=== PATIENT | male | born 1955 | race Caucasian/White ===

== ENCOUNTER 2019-04-09 12:08 | Outpatient (CLI) | payer BC, SELFPAY ==
[2019-04-09] VITALS (8 sets, daily range): BP systolic 122–148; BP diastolic 64–85; PULSE 67–83; RESP 16–18; TEMP 37; O2SAT 94–98
--- NOTE | 2019-04-09 12:11 | DI.RAD.S_ITS ---
PROCEDURE: PAIN L/S FACET INJ/BLK 1ST [place] COMPARISON: [facility] [place], CR, XR LUMBAR SPINE 2 OR 3 VIEWS, 02/20/2019, 15:20. [facility] [place], MR, MR LUMBAR SPINE WITH/WITHOUT CONTRAST, 02/27/2019, 10:44. INDICATIONS: SPONDYLOSIS FINDINGS: 6 intraoperative fluoroscopy images demonstrate injection of L4-L5 facet joint bilaterally. IMPRESSION: Fluoroscopy for pain management. Dictated by: Jai Rainey M.D. on 04/09/2019 at 17:04 Approved by: Jai Rainey M.D. on 04/09/2019 at 17:05
[2019-04-09] MEDS: fentaNYL 100 MCG/2 ML INJ 50 MCG IV (13:25)
[2019-04-09] MEDS: MIDAZOLAM 5 MG/5 ML VIAL IV (13:25)
[2019-04-09] MEDS: IOPAMIDOL 15 ML VIAL 3 ML INJ (13:28)
[2019-04-09] MEDS: LIDOCAINE 1% 20 ML INJ 10 ML INJ (13:29)
[2019-04-09] MEDS: BUPIVACAINE 0.5% (PF) VIAL 2 ML INJ (13:29)
[2019-04-09] MEDS: BETAMETHASONE 30 MG/5 ML MDV 12 MG INJ (13:29)
--- NOTE | 2019-04-09 13:34 | PC.NURSE ---
pt tolerated procedure well. Able to get off the table with standby assist. Transferred pt via wheelchair to pre procedure room for continued monitoring with Claire GOLDEN.
--- NOTE | 2019-04-09 13:36 | P.PCN_ITS ---
Procedures Date/Time Date of procedure: 04/09/19 Time of procedure: 13:35 General Procedure description: PREOP DIAGNOSIS 1. FACET ARTHROPATHY 2. AXIAL LBP 3. MULTILEVEL DDD POST OP DIAGNOSIS 1. FACET ARTHROPATHY 2. AXIAL LBP 3. MULTILEVEL DDD PROCEDURES 1. FLUORSCOPICALLY GUIDED CONTRAST CONTROLLED FACET JOINT INJECTIONS BILATERAL L4/5 PHYSICIAN: Akbar Victor, DO INDICATIONS Tony is referred by Dr. Miranda for treatment of Axial LBP FINDINGS Multilevel Facet Arthropathy with Clinically significant axial LBP DESCRIPTION OF PROCEDURE Fluoroscopically guided, contrast-controlled bilateral L4/5 facet joint injections. Following denial of allergy and review of potential side effects and complications, including, but not necessarily limited to, infection, allergic reaction, local tissue breakdown, stroke, temporary or permanent nerve injury, paralysis, and possible , the patient indicated that the patient understood and agreed to proceed. An informed consent document was signed by the patient, witnessed by a nurse, and placed in the patient's chart. Additionally, other treatment options including medications, modalities, and physical therapy were reviewed with the patient. After review of previous anaesthesic history and IV conscious sedation the patient was deemed safe to proceed with todays procedure with IV conscious sedation as ASA class II designation. Safety time-out was performed to confirm patient ID, procedure to be performed and site of procedure. IV sedation was accomplished with a combination of 2mg of Versed and 50mcg of Fentanyl was administered by the RN after DO order, titrated to patient comfort during the course of the procedure while the patient remained responsive to all verbal commands In the prone position, following sterile prep and drape of the lumbar region, th e posterior aspect of the L4/5 facet joints were identified fluoroscopically. The skin was anesthetized via a 25-gauge 1.5-inch needle with 1% lidocaine solution into the corresponding facet joints. At this point, a 22-gauge 3.5- inch spinal needle was atraumatically introduced and advanced under fluoroscopic guidance into the corresponding facet joints. Following negative aspiration, injections of approximately 0.2-cc of Isovue 200 confirmed interarticular placement without vascular uptake. The identical procedure was then performed at the L4/5 facet joint on the left. Radiological data, including multiple fluoroscopic views of the lumbosacral spine, reveal a spinal needle at the L4/5 facet joints bilaterally. Subsequent views show flow of contrast material both superiorly and inferiorly within the joint space without vascular or intrathecal uptake. At this point, a total of 0.5 cc including a mixture of 0.25cc Marcaine and 0.25cc betamethasone was injected without complication into each of the corresponding facet joints. The patient tolerated the procedure well without signs or symptoms of complications prior to transfer to the recovery area continued monitoring with out incident. The patient was then transferred to the recovery area where they were observed for an appropriate period of time after the injection. The patient reported a VAS score of 7 prior to the procedure and a post- procedure VAS of 0. Total Fluoroscopy Time: 20.3 seconds Total Conscious Sedation Time: 24min POST OP INSTRUCTIONS The patient was provided a Pain Log to continue to record their response to the target-specific procedure prior to follow-up visit with their referring physician. Additionally, specific post-injection care instructions and a contact number to our office were provided if concerns arise regarding possible complications associated with the procedure are suspected. Akbar Victor, Complications: none
== END 2019-04-09 14:44 | disposition home or self-care (01) ==
LOC: RAD 12:09
PROVIDERS: PCP Family Medicine; Visit Provider Physical Medicine & Rehabilitation
DX: M47.816 Spondylosis without myelopathy or radiculopathy, lumbar region (principal); M54.5 Low back pain; M51.36 Other intervertebral disc degeneration, lumbar region
CPT/HCPCS: 64493; 99152; J0702; J2250; J3010

== ENCOUNTER 2023-05-31 10:02 | Inpatient (IN) | payer MEDICARE, OTHER, SELFPAY ==
[2023-05-23 13:58] VITALS: BMI 38.7
[2023-05-31] VITALS (13 sets, daily range): BP systolic 112–143; BP diastolic 70–86; PULSE 53–76; RESP 10–22; TEMP 35.8–36.4; O2SAT 89–98; BMI 38.7
[2023-05-31] MEDS: LACTATED RINGERS 1,000 ML 42 ML IV ×2 (10:46→17:05)
--- NOTE | 2023-05-31 11:20 | PM.PREOP ---
Pre-operative Note COVID-19 Criteria for continued procedure: Expected advancement of disease process, Possibility delay results in more complex future surgery or treatment, Increased loss of function, Continuing or worsening of significant or severe pain, Deterioration of the patient's condition or overall health and Delay expected to result in less-positive ultimate med/surg outcome Interval Note History & Physical reviewed/Exam performed by Physician: Yes Changes to H&P: No
[2023-05-31] MEDS: CEFAZOLIN VIAL 1 GM in SODIUM CHLORIDE 0.9% 100 ML IV (12:35)
[2023-05-31] MEDS: CEFAZOLIN 2 GM/100 ML PREMIX 100 ML IV ×2 (12:35→20:17)
--- NOTE | 2023-05-31 12:54 | SUR.OPER ---
Prone on spine table, head in foam head support, padded chest and pelvic supports, gel pad at knees, lower legs supported by pillows; nipples, genitalia and toes free of pressure, arms secured on foam padded arm boards at <90 degrees abduction. Tape over blanket at thigh secured to table.
[2023-05-31] MEDS: BUPIVACAINE LIPOSOME 266 MG/20 ML VIAL INJ (13:21)
[2023-05-31] MEDS: BUPIVACAINE 0.25% (PF) 30 ML, EPINEPHrine 0.15 MG INJ (13:22)
--- NOTE | 2023-05-31 16:06 | DI.RAD.S_ITS ---
PROCEDURE: XR LUMBAR SPINE 2-3V INDICATIONS: L3-4, L4-5 TLIF ROBOT TECHNIQUE: 2 intraoperative fluoroscopic spot films COMPARISON: None. FINDINGS: Low resolution intraoperative fluoroscopic spot films shows discectomy and fusion at L3-4 and L4-5 as level films with posterior zaida and screw instrumentation in good position IMPRESSION: Fluoroscopic guidance Approved by: Memo Hess M.D. on 05/31/2023 at 16:00
--- NOTE | 2023-05-31 16:11 | P.OP_ITS ---
Operative Date/Time/Diagnoses Date of procedure: 05/31/23 Time of procedure: 12:00 Pre-op diagnosis: 1. L3-4, L4-5 spinal stenosis with neurogenic claudication 2. Epidural lipomatosis 3. Lumbar spondylosis with foramen stenosis Post-op diagnosis: same Procedure & Clinicians Procedure: 1. L3-4, L4-5 Postero-lateral and posterior interbody fusion 2. L3-4, L4-5 interbody cage placement. 3. L3-4, L4-5 decompressive laminectomy with bilateral facetecomies 4. L3-4, L4-5 Posterior segmental instrumentation 5. [place] of bone marrow from iliac crest 6. Utilization of microsurgical technique and operating microscope 7. Utilization of robotic assisted navigation Same procedure as scheduled: Yes Indications: Patient has been having chronic back pain and worsening lumbar radiculopathy and symptoms of neurogenic claudication. Patient failed multiple conservative management with worsening pain weakness and numbness in his lower extremity. Patient has been having difficulty performing activity of daily living. After discussing risks benefits of treatment options, patient elected proceed with surgery. Surgeon: Kevon Adrian Automated Cutting Machine Operator: Bryanna Scott Click Yes if Unassisted: No Anesthesia Type: General Operative Notes Closure Type: primary Specimen(s): none sent Prosthetic devices, grafts, tissues, transplants, or devices: Globus CREO MIS screws, Rise cages Applied: catheter Estimated Blood Loss (mL): 100 Blood products transfused: none Procedure in detail: Patient was seen in the preoperative area. Risks and benefits of the surgery was discussed with the patient. Informed consent was obtained from the patient and placed in the chart. Surgical site was marked. Patient was taken to the operative room. General anesthesia was administered. Prophylactic antibiotic was given to the patient less than 30 min before the incision was made. Patient was placed into a prone position on the Gaurav table. Patient's back was then prepped and draped in the sterile fashion. Time-out was performed at this time. After patient was prepped and draped, patient's PSIS was palpated and marked bilaterally. Small 1 cm incision was made over the PSIS for placement of the reference probes. Two trocar was placed into the PSIS 1 on each side. The reference probe was attached to the trocar of the reference apparatus. At this time the C-arm imaging was used to confirm AP and lateral of L3, L4-L5 vertebrae and merged the C-arm imaging using the [employer] robotic navigation system with the CT of the lumbar spine. After successful merging was completed and confirmed, skin marker was used to booker out the skin incision using the [employer] robotic arm. Bilateral incision was made at this time. Pre templated trajectory was used and guided using the [place] navigation system for bilateral L3 L4, L5 pedicle screw placement. This was done by using the robotic arm to guide the high-speed bur to make a cortical entry point. Next a drill was placed also using the robotic arm and guided u sing the navigation system drilling partially through bilateral L3, L4, L5 pedicles. Next L3, L4, L5 pedicle screws it was pre templated and measured was placed onto the power concrete mixing truck driver and inserted into the pedicles bilaterally. After all 6 screws were placed C-arm imaging was taken of both AP and lateral to confirm the placement. Excellent placement of the screws were confirmed and a matched precisely with the pre planned screw placement using the navigation system. MARs retractor was inserted using [employer] guidence. Globus MARS retractors was placed inside the incision and docked onto the L3, L4 lamina. Using microsurgical technique and operating microscope, a L3, L4 laminectomy and L3-4, L4-5 facetectomy was performed using a [place] rongeur. The laminectomy and facetectomy was performed in order to decompress patient's cauda equina as well as the nerve roots exiting at the L3-4, L4-5 level. Patient was found have severe central, lateral recess and neural foramen stenosis which was fully decompressed after the laminectomy facetectomy. The laminectomy and facetectomy was performed in order to decompress patient's cauda equina as well as the nerve roots exiting at the L3-4, L4-5 level. More than 75% of the facets were removed during the process of decompression rendering L3-4, L4-5 level grossly unstable and required a fusion procedure at the same time. The disc space at L3-4, L4-5 was identified, and a total diskectomy was performed at L3-4, L4-5 level. The endplates were decorticated using a rasp and shaver. The total diskectomy and decortication was performed at L3-4, L4-5 level in order to to accomplish a L3- 4, L4-5 fusion. The local bone from the laminectomy and facetectomy was saved for local bone grafting. After the total diskectomy and decortication was completed, Trifecta bone graft material was combined with local bone that was harvested earlier. Patient was also found have significant amount of epidural lipomatosis in the epidural space. This further contributed to patient's severe spinal stenosis. The lipomas were carefully resected from the epidural space to further decompress the spinal stenosis. At this time, a separate skin is incision was made over the iliac crest. A Jamshidi needle was inserted into the iliac crest through a separate skin incision. 5 cc of bone marrow aspiration was obtained through the separate skin incision using a Jamshidi needle from the iliac crest. The bone marrow aspiration was combined with local bone and the Trifecta bone grafting material. The bone grafting material was placed into the L3-4, L4-5 interbody space along with expandable cages. One cage each was inserted into the L3-4 L4-5 interbody space along with bone graft material. The cage was expanded to its maximum he ight using the torque limiting screwdriver. The disc preparation as well as the cage insertion were also performed under navigation guidance. After the cage was placed, AP and lateral C-arm imaging w as taken to confirm placement of the cage and excellent position was confirmed. Globus MARS retractor was inserted and docked onto the L3-4, L4-5 posterolateral gutter on the right side. Using the power drill, posterior-lateral decortication was performed at L3-4, L4-5 level until bleeding cortical bone was identified. The remaining bone grafting material was placed into the L3-4, L4-5 posterior lateral gutter he order to accomplish posterolateral fusion at the L3- 4, L4-5 level. At this time the tulips were attached to the L3, L4-L5 pedicle screw shanks. After measuring the length of the rods, they were inserted into the tulips of the pedicle screws and locked in place using locking caps and torque limiting screwdriver bilaterally. Total 6 caps and 2 titanium rods was used in order to complete the posterior instrumentation construct. After all the hardware was placed, and confirmed with AP and lateral C-arm imaging, the wound was then irrigated with sterile normal saline and packed with Ray-Silke gauze for 3 min to accomplish hemostasis. After the gauze was removed the deep fascia was closed with #1 Vicryl suture. The subcutaneous layer was closed with 2-0 Vicryl. The skin was closed with skin argelia. Patient tolerated the procedure well. There were no complications. Neuro monitoring system was used to monitor patient's neurologic status throughout entire procedure. There was no disturbance of the neural monitoring signals throughout the case. The Operation could not have been safely performed without compromising the technical result or length of the procedure, without the assistance of a skilled surgical assistant certified. The surgical assistant certified was medically necessary for proper positioning, retraction and manipulation of instruments, proper exposure, surgical preparation, and manipulation of tissue. Complications: none Post-operative Condition: stable Disposition: PACU Plan for aftercare: Admit to inpatient hospital
[2023-05-31] MEDS: OXYCODONE IR 5 MG TABLET PO (16:50)
[2023-05-31] MEDS: hydrOXYzine pamoate 25 MG CAPSULE 50 MG PO (16:51)
[2023-05-31] MEDS: ACETAMINOPHEN 325 MG TABLET 650 MG PO (18:30)
[2023-05-31] MEDS: OXYCODONE IR 10 MG TABLET PO (18:30)
[2023-05-31] MEDS: LACTATED RINGERS 1,000 ML 125 ML IV (18:30)
[2023-05-31] MEDS: SENNOSIDES 8.6 MG TABLET 17.2 MG PO (20:18)
[2023-05-31] MEDS: ATORVASTATIN 20 MG TABLET 40 MG PO (20:18)
[2023-05-31] MEDS: DOCUSATE 100 MG CAPSULE PO (20:18)
[2023-06-01] MEDS: OXYCODONE IR 10 MG TABLET PO ×5 (01:14→21:44)
[2023-06-01] MEDS: LACTATED RINGERS 1,000 ML 125 ML IV (03:08)
[2023-06-01 03:36] VITALS: BP 146/71; PULSE 66; RESP 20; TEMP 36.4; O2SAT 96
[2023-06-01] MEDS: CEFAZOLIN 2 GM/100 ML PREMIX 100 ML IV (04:29)
[2023-06-01 05:19] LABS: Hematocrit 39.6 % (41-53); Hemoglobin 13.3 g/dL (13.5-17.5)
[2023-06-01 08:00] VITALS: BP 141/81; PULSE 80; RESP 18; TEMP 37.4; O2SAT 95
[2023-06-01] MEDS: hydrOXYzine pamoate 25 MG CAPSULE PO ×4 (08:29→21:44)
[2023-06-01] MEDS: DOCUSATE 100 MG CAPSULE PO ×2 (08:29→21:44)
[2023-06-01] MEDS: METOPROLOL ER 25 MG TABLET PO (08:29)
[2023-06-01] MEDS: AMLODIPINE 5 MG TABLET PO (08:29)
[2023-06-01 09:31] VITALS: O2SAT 92
[2023-06-01 12:00] VITALS: BP 133/75; PULSE 84; RESP 18; TEMP 37.3; O2SAT 93
[2023-06-01] MEDS: ACETAMINOPHEN 325 MG TABLET 650 MG PO (12:48)
--- NOTE | 2023-06-01 12:57 | PM.PN.1 ---
Subjective Subjective Date Patient Seen: 06/01/23 Time Patient Seen: 10:30 Interval history: Patient is resting comfortably in bed this morning. He states that he had a rough night with pain and ?dreams.? Denies fever and chills. States he is unsure that he had trouble breathing last night, unsure why he is wearing nasal cannula with O2 at 2 L. Denies chest pain, shortness of breath. Exam Vital Signs (past 8 hours): - 06/01/23 09:31 06/01/23 07:55 Pulse Oximetry 92 Oxygen Delivery Method Nasal Cannula Nasal Cannula Oxygen Flow Rate 2 Oxygen Delivery Method Nasal Cannula Oxygen Flow Rate 2 Narrative Exam Narrative: 67-year-old male. Awake, alert, and oriented. Intraoperative dressing clean, dry, and intact. Strength and sensation intact to bilateral lower extremities. Mild subjective tingling to bilateral feet. Bilateral calves soft, compressible, nontender with no palpable cords or masses. Objective Labs 06/01/23 04:40 Labs: Laboratory Results - last 24 hr 06/01/23 04:40 Hgb 13.3 L Hct 39.6 L PFSH Medical History (Updated 05/23/23 @ 14:44 by Kelsey Ramirez RN) CAD (coronary artery disease) Easy bruisability History of mechanical ventilation (2020) HLD (hyperlipidemia) HTN (hypertension) Ischemic cardiomyopathy Melanoma Suspected sleep apnea Surgical History (Updated 05/23/23 @ 14:19 by Kelsey Ramirez RN) History of cardiac cath History of placement of ear tubes (06/2021) History of surgical removal of ganglion cyst (~2015) Hx of heart artery stent (2017) Hx of nasal septoplasty Social History household members: none Smoking Status: Current every day smoker alcohol intake: current Assessment & Plan Assessment & Plan narrative: Patient is day 1 status post two-level TLIF. He is not been out of bed yet and still has urinary catheter, discontinued today. Has had intermittent high blood pressure, treated with amlodipine. Plan to work with physical therapy this morning and afternoon. Continue multimodal pain regimen as needed. Disposition pending physical therapy recommendations. Quality VTE Deep Vein Thrombosis/Pulmonary Embolism Present on Admission: No
--- NOTE | 2023-06-01 16:17 | PT.IIE ---
Current Diagnoses Spondylolisthesis, lumbar region (05/31/23) Spinal stenosis, lumbar region with neurogenic claudication (05/31/23) Postlaminectomy syndrome, not elsewhere classified (05/31/23) Surgery Performed Operation Date: 05/31/23 11:45 Actual Procedures p L3-4, L4-5 TLIF w. posterior instrumentation -Robot - Kevon Adrian MD Surgical History (Last Updated 05/23/23 @ 14:19 by Kelsey Ramirez, RN) History of cardiac cath History of placement of ear tubes (06/2021) History of surgical removal of ganglion cyst (~2015) Hx of heart artery stent (2017) Hx of nasal septoplasty Medical History (Last Updated 05/23/23 @ 14:44 by Kelsey Ramirez, RN) CAD (coronary artery disease) Easy bruisability History of mechanical ventilation (2020) HLD (hyperlipidemia) HTN (hypertension) Ischemic cardiomyopathy Melanoma Suspected sleep apnea Physical Therapy Inpatient Evaluation/Re-Eval M1 PT/OT-IP Prior Functional Status Start: 06/01/23 17:30 Freq: NEEDED Status: Active Protocol: Document 06/01/23 14:35 AB (Rec: 06/01/23 17:45 AB [id number]) Medical Review Prior Functional Status Medical History Reviewed Yes Mobility and Gait pt stated that he is independent with all mobilities and ambulation without AD Social History Household Members none Living Arrangements House Number of Floors (Floors) One Floor Number of Stairs To Enter/Railing? 2 steps without rails to enter Home Environment Standard Height Toilet,Tub/ Shower Home Equipment Front Wheel Walker M2 PT-IP Current Condition Start: 06/01/23 17:30 Freq: NEEDED Status: Active Protocol: Document 06/01/23 14:35 AB (Rec: 06/01/23 17:45 AB [email or web address]) Physical Therapy Current Condition Current Condition Evaluation Date 06/01/23 Treatment Diagnosis s/p L3-4, L4-5 TLIF; difficulty in walking Onset Date 05/31/23 M3 PT-IP Subjective Start: 06/01/23 17:30 Freq: NEEDED Status: Active Protocol: Document 06/01/23 14:35 AB (Rec: 06/01/23 17:45 AB [email or web address]) Subjective Physical Therapy Visit Type Type Initial Evaluation Visit Start Time 14:35 Visit Stop Time 15:36 Total Visit Minutes 61 Number of LIQUOR GRINDING MILL OPERATOR Visits 0 Physical Therapy Visit Comments Patient Comments agreeable to do PT Therapy Pain Assessment Pain When Pain Assessed During Mobility Pain Present Pain Present Pain Reported Location LOWER BACK Intensity 8 Scale Used Numeric (0 - 10) Pain Management Techniques Distraction,Modification of Treatment,Re-positioning, Timing of Activity with Medications M4 PT-IP Mobility and Gait Start: 06/01/23 17:30 Freq: NEEDED Status: Active Protocol: Document 06/01/23 14:35 AB (Rec: 06/01/23 17:45 AB [id number]) PT-Bed Mobility Assessment Rolling Type of Rolling Log Rolling Level of Assist Maximal Assistance Supine to Sit Supine to Sit Maximum Assistance PT-Transfer Assessment Sit to and From Stand Sit to and from Stand Moderate Assistance,Maximum Assistance,1 Person Assistance ,Use of Upper Extremities Equipment Transfer Assistive Device Front Wheeled Walker Orthotic/Prosthetic Devices or Brace: No Transfers Transfer Destination Chair Transfer Technique ambulated Transfer Ability Level of Assist Moderate Assistance,Maximum Assistance,1 Person Assistance ,Use of Upper Extremities Comments Mobility Comments pt supine in bed. daughter in room but left the room per pt 's request to do PT. educated on back precautions. completed supine to sit log roll max A and max cues. CGA for sitting on EOB. completed sit to stand mod A to max A and max cues and ambulated in room ~ 10 ft using FWW mod to max A and max cues. pt with slow janelle and decrease LE elevation with heavy UE use on fWW. also presents with bilateral genu varum and increase B knee flexion during ambulation. cued to correct but pt only partially correct and unable to maintain. pt agreed to sit up on the chair. completed sit to stand from the chair and pt only able to stand midway mod A and requiring max A to get to upright position. pt instructed to sit back and positioned on the chair. call light and table placed within reach. informed NAC on pt's assistance level. informed pt and daughter regarding SNF rehab and pt agreed. pt lives alone and daughter will only be able to there with pt for 1-2 days. informed shoe caser. Gait Assessment Gait Gait Assistance Required: Moderate Assistance,Maximum Assistance Distance (Feet) 10 Able to Maintain Weight Bearing Status Yes During Gait Assistive Devices Assistive Device Gait Belt,Front Wheeled Walker Orthotic/Prosthetic Devices or Brace: No Gait Deviations General Gait Pattern Decreased Stride Length, Decreased Feet Clearance,Step- to Gait Factors Limiting Gait Function Factors Limiting Gait Function Decreased Activity Tolerance, Decreased Strength,Difficulty Following Directions,Limited Range of Motion,Pain,Poor Balance,Poor Safety Awareness PT-Balance Assessment Sitting Balance and Reactions Static Sitting Balance Ability Good Dynamic Sitting Balance Ability Fair Standing Balance and Reactions Static Standing Balance Ability Poor Dynamic Standing Balance Ability Poor M5 PT-IP Objective Assessments Start: 06/01/23 17:30 Freq: NEEDED Status: Active Protocol: Document 06/01/23 14:35 AB (Rec: 06/01/23 17:45 AB [email or web address]) Orientation Orientation/Cognition Level of Alertness Alert Orientation Name,Place,Situation Language Function Ability No Deficits Noted Safety Awareness Decreased Safety Awareness Memory Description No Deficits Noted Gross Range of Motion Lower Extremity ROM Impairments presents with bilateral genu varum Strength Lower Extremity Strength Hip 4-/5 Knee 4-/5 Sensation Assessment Sensation Gross Sensation Right LE Impaired,Left LE Impaired Sensation Description Numbness Comments Sensation Comments has chronic BLE numbness but stated that he can feel better on BLE after surgery but still is decrease Muscle Tone Muscle Tone WNL Yes M6 PT-IP Treatment Start: 06/01/23 17:30 Freq: NEEDED Status: Active Protocol: Document 06/01/23 14:35 AB (Rec: 06/01/23 17:45 AB [email or web address]) Physical Therapy Treatment Education Education Provided Precautions,Weight Bearing Status,Post-Op Packet,Safety M7 PT-IP Assessment and Plan Start: 06/01/23 17:30 Freq: NEEDED Status: Active Protocol: Document 06/01/23 14:35 AB (Rec: 06/01/23 17:45 AB [email or web address]) PT Summary Assessment and Plan Potential Rehabilitation Potential Fair Status of Condition at Evaluation Evolving Summary Impairments Pain,ROM,Strength,Balance, Coordination,Sensation,Tone, Cognition,Bed Mobility, Transfers,Gait,Activity Tolerance Assessment Summary pt s/p L3-4, L4-5 TLIF POD 1. pt requiring max A for bed mobility and mod to max A for transfers and only ambulated ~ 10 ft using FWW. pt will require 24/7 assist at this time but lives alone. pt will benefit from SNF rehab. will continue to assess progress. Goals Bed Mobility Goal Minimal Assistance Transfer Goal Minimal Assistance,Front Wheeled Walker Gait Goal Minimal Assistance,Front Wheel Walker Gait Distance 50 Other Goals improve bed mobility, transfers using FWW and ambulation using FWW ~ 150 ft SBA up/down 2 steps using SPC CGA Days to Meet Goals 10 Frequency of Treatment Frequency Of Treatment Twice a Day Treatment Plan Physical Therapy Treatment Plan Bed Mobility Training,Transfer Training,Gait Training, Therapeutic Exercise,Balance Retraining,Post Op Education, Discharge Planning,Hot or Cold Pack,Neuromuscular Re-ed, Coordination Retraining,Manual Therapy Precautions Lumbar Precautions Log Roll,No Twisting,Limit Bending,Lifting Restriction of 10 lbs,Gait Belt above Incisional Area Recommendations To Nursing Amount of Assist Needed 2 Person Assist Discharge Recommendations PT Discharge Recommendations SNF Rehab Transportation Needs at Discharge Wheelchair/Cabulance
--- NOTE | 2023-06-01 17:29 | CM.DANOTE ---
DCP Brief Note: Patient is a 67 yo M here following a planned TLIF with Dr. Adrian on 05.31.23. PCP: Gera Krishnan Payer: medicare and [employer] WIRE DRAWING MACHINE OPERATOR reviewed EMR. WIRE DRAWING MACHINE OPERATOR unable to meet with patient due to triage needs and staff shortage. PT reported to WIRE DRAWING MACHINE OPERATOR that he is not safe to d/c today due to intense pain and mobility concerns. PT reports Concerns with patient living alone. PT reports he may be SNF appropriate for care. WIRE DRAWING MACHINE OPERATOR reported he may not qualify for SNF due to insurance qualifications. WIRE DRAWING MACHINE OPERATOR met with daughter Salena and RITA Parsons in [facility]. Due to patient not giving consent to speak with daughter, WIRE DRAWING MACHINE OPERATOR did not give specific information regarding patient's condition. WIRE DRAWING MACHINE OPERATOR answered general questions regarding HH versus SNF and insurance questions. Daughter is concerned about her dad going home alone. Plan: CM team will follow up in morning for comprehensive and safe d/c plan. THALIA Benton Discharge Planning/Care Management Pre-Anesthesia Assessment Start: 05/23/23 13:58 Freq: Status: Complete Protocol: Document 05/23/23 13:58 CAB (Rec: 05/23/23 15:03 CAB [id number]) Pre-Anesthesia Assessment Patient Information Reviewed Via Phone Assessment Assessment Completed With Patient Comment Outside labs/EKG scanned Primary Care Provider Gera Krishnan Seen Specialist in Last 12 Months Yes Specialist Seen Professional Architect,Orthopedist Primary Language Danish Personnel Technician Required No Height 177.8 cm Weight 122.47 kg Body Mass Index (BMI) 38.7 Hearing Ability Normal Visual Assist Glasses Dentition Type Teeth, Natural Present,Teeth, Missing Barriers to Learning None Hx Anesthesia Reactions No Hx Family Anesthesia Reaction No Hx Malignant Hyperthermia No Hx Blood Transfusions No Anesthesia Review Requested Yes: Ekaterina/MARGO @ Surgeon's office requested re: EKG changes Placement Officer No alcohol intake current alcohol intake frequency holidays/special occasions only Smoking Status Current every day smoker Tobacco type cigars Smoking packs per day 3 Substance Use Type does not use Pain Present Pain Reported Musculoskeletal Symptoms Abnormal Gait,Back Pain, Difficulty Walking,Joint Pain, Radiating Pain into Limb History of Falling (Recent or History of No ) Patient is completely paralyzed or No completely immobile Mental Status Oriented to own ability Is patient on oxygen? No Does patient have GARSIA/SOB No Hx Sleep Apnea No Currently Taking a Beta Princess Yes: Metoprolol Hx Chest Pain No Hx SOB No Hx Syncope or Dizziness No Anti-Coagulant Therapy No Has a Professional Architect Yes: Pre-op 05/23/[address] Rolle Cardiac Testing No Hx Pacemaker/ICD No Pacemaker Rep Required? No Cardiac Clearance Received Yes Comment Cardiac records scanned Diet Type At Home Regular Dysphagia No Gastrointestinal Symptoms None Chronic UTI No Bladder Pattern Nocturia,Urgency Urinary Catheter Present No Hx Urinary Self Catheterization No Diabetes No Presence of External or Internal Medical Yes: Cardiac stent, ear tubes Devices Received a COVID vaccine? Yes Received all doses? No Marital Status Single Lives With none Current Living Arrangements House Number of Floors (Floors) One Floor Support System Child/Children Comment Daughter and ex- will be available to assist with care at DC Does the Patient Have Assistance After Yes Surgery Patient Discharge Plan Description Return Home Comment Pt advised 2 day length of stay per surgeon Feels Safe in Current Environment Yes Been Physically Hurt or Threatened By a No Person in Current Environment Do you have thoughts of harming yourself None or others? Are you currently considering suicide? No Do you have a plan to hurt yourself or No Plan others? Do You Have Any Spiritual Beliefs That No May Affect Your HC Choices? Do You Have Any Cultural Practices That No May Affect Your HC Choices? Comment Restorationist Who Can We Speak to About Patient's Care Family, friends Identifying Code for Release of Patient Annie Information Health Care Proxy/Next of Kin Alex (son) Health Care Proxy Emergency Contact Name Moni (daughter) Emergency Contact Advance Directives? Yes Advance Directives on File No Requested Patient Bring Advanced Yes Directives DOS Power of City Secretary Yes Power of City Secretary Name Alex (son) Power of City Secretary PAC Instructions Durable medical equipment, Medications to take/avoid, Nasal antibiotic,No ETOH/ petroleum product on skin DOS, NPO,Pre-surgical wash,Sensory aids,Sturdy shoes/comfortable clothes,Do not bring valuables and remove jewelry
[2023-06-01 19:44] VITALS: BP 149/87; PULSE 79; RESP 20; TEMP 36.7; O2SAT 92
[2023-06-01] MEDS: ATORVASTATIN 20 MG TABLET 40 MG PO (21:43)
[2023-06-01] MEDS: SENNOSIDES 8.6 MG TABLET 17.2 MG PO (21:44)
[2023-06-02 04:09] VITALS: TEMP 37.5
[2023-06-02] MEDS: hydrOXYzine pamoate 25 MG CAPSULE PO (04:09)
[2023-06-02] MEDS: OXYCODONE IR 10 MG TABLET PO ×2 (04:09→08:12)
[2023-06-02 04:11] VITALS: BP 136/70; PULSE 88; RESP 18; TEMP 37.5; O2SAT 93
[2023-06-02 08:11] VITALS: BP 143/82; PULSE 84
[2023-06-02] MEDS: METOPROLOL ER 25 MG TABLET PO (08:11)
[2023-06-02] MEDS: DOCUSATE 100 MG CAPSULE PO ×2 (08:12→20:43)
[2023-06-02] MEDS: AMLODIPINE 5 MG TABLET PO (08:12)
[2023-06-02 08:32] VITALS: BP 143/82; PULSE 84; RESP 18; TEMP 36.9; O2SAT 92
--- NOTE | 2023-06-02 10:30 | PT.IPTN ---
Current Diagnoses Spondylolisthesis, lumbar region (05/31/23) Spinal stenosis, lumbar region with neurogenic claudication (05/31/23) Postlaminectomy syndrome, not elsewhere classified (05/31/23) Surgery Performed Operation Date: 05/31/23 11:45 Actual Procedures p L3-4, L4-5 TLIF w. posterior instrumentation -Robot - Kevon Adrian MD Physical Therapy Treatment Note M2 PT-IP Current Condition Start: 06/01/23 17:30 Freq: NEEDED Status: Active Protocol: Document 06/02/23 10:14 SAK (Rec: 06/02/23 10:30 SAK [id number]) Physical Therapy Current Condition Current Condition Evaluation Date 06/01/23 Treatment Diagnosis s/p L3-4, L4-5 TLIF; difficulty in walking Onset Date 05/31/23 M3 PT-IP Subjective Start: 06/01/23 17:30 Freq: NEEDED Status: Active Protocol: Document 06/02/23 10:14 SAK (Rec: 06/02/23 10:30 SAK [id number]) Subjective Physical Therapy Visit Type Type Treatment Note Visit Start Time 09:15 Visit Stop Time 09:40 Total Visit Minutes 25 Physical Therapy Visit Comments Patient Comments Reports I'm fine as long as I don't move. Very tired. Therapy Pain Assessment Pain When Pain Assessed During Mobility Pain Present Pain Present Allowed to Sleep Location LOWER BACK Pain Behaviors Facial Grimacing,Guarding, Moaning,Wincing Pain Management Techniques Distraction,Modification of Treatment,Re-positioning, Timing of Activity with Medications M4 PT-IP Mobility and Gait Start: 06/01/23 17:30 Freq: NEEDED Status: Active Protocol: Document 06/02/23 10:14 SAK (Rec: 06/02/23 10:30 SAK [id number]) PT-Bed Mobility Assessment Rolling Type of Rolling Log Rolling Level of Assist Maximal Assistance Supine to Sit Supine to Sit Maximum Assistance Scooting Scooting to Edge of Bed Maximum Assistance PT-Transfer Assessment Sit to and From Stand Sit to and from Stand Moderate Assistance,1 Person Assistance,2 Person Assistance ,Use of Upper Extremities Equipment Transfer Assistive Device Front Wheeled Walker Orthotic/Prosthetic Devices or Brace: No Transfers Transfer Destination Chair Transfer Technique ambulated Transfer Ability Level of Assist Moderate Assistance,Use of Upper Extremities Comments Mobility Comments Patient needed verbal cues and mod to max assist for mobility skills and transfers. supine to sit at EOB via logrol required max assist and heavy cues. Mod to max to scoot to edge of bed sit to stand with mod assist. Patient ambulated 10 ft with FWW, min assist of PT and RN, very slow with stopping to clear throat, cough. Verbalizations confused at times. O2 Sats 89% Gait Assessment Gait Gait Assistance Required: Minimum Assistance Distance (Feet) 10 Able to Maintain Weight Bearing Status Yes During Gait Assistive Devices Assistive Device Gait Belt,Front Wheeled Walker Gait Deviations General Gait Pattern Decreased Stride Length, Decreased Feet Clearance,Step- to Gait Factors Limiting Gait Function Factors Limiting Gait Function Decreased Activity Tolerance, Decreased Strength,Difficulty Following Directions,Limited Range of Motion,Pain,Poor Balance,Poor Safety Awareness PT-Balance Assessment Sitting Balance and Reactions Static Sitting Balance Ability Good Dynamic Sitting Balance Ability Fair M5 PT-IP Objective Assessments Start: 06/01/23 17:30 Freq: NEEDED Status: Active Protocol: Document 06/02/23 10:14 [facility] (Rec: 06/02/23 10:30 [facility] [id number]) Orientation Orientation/Cognition Level of Alertness Confusional State Orientation Name,Place,Situation Comments confused about day, whether already OOB this date M6 PT-IP Treatment Start: 06/01/23 17:30 Freq: NEEDED Status: Active Protocol: Document 06/02/23 10:14 SAK (Rec: 06/02/23 10:30 [facility] [id number]) Physical Therapy Treatment Education Education Provided Precautions,Safety M7 PT-IP Assessment and Plan Start: 06/01/23 17:30 Freq: NEEDED Status: Active Protocol: Document 06/02/23 10:14 [facility] (Rec: 06/02/23 10:30 [facility] [id number]) PT Summary Assessment and Plan Summary Impairments Pain,ROM,Strength,Balance, Coordination,Sensation,Tone, Cognition,Bed Mobility, Transfers,Gait,Activity Tolerance Assessment Summary Patient requires heavy assist as above for bed mobility and transfers, some dec assist with gait but no increase in distance, patient exhibiting some confusion. Coughed up yellow sputum, deep breathing encouraged. RN assisted with mobility for safety due to prior assist needed plus confused state. O2 sats 89% Goals Bed Mobility Goal Minimal Assistance Transfer Goal Minimal Assistance,Front Wheeled Walker Gait Goal Minimal Assistance,Front Wheel Walker Gait Distance 50 Other Goals improve bed mobility, transfers using FWW and ambulation using FWW ~ 150 ft SBA up/down 2 steps using SPC CGA Days to Meet Goals 10 Frequency of Treatment Frequency Of Treatment Twice a Day Treatment Plan Physical Therapy Treatment Plan Bed Mobility Training,Transfer Training,Gait Training, Therapeutic Exercise,Balance Retraining,Post Op Education, Discharge Planning,Hot or Cold Pack,Neuromuscular Re-ed, Coordination Retraining,Manual Therapy Precautions Lumbar Precautions Log Roll,No Twisting,Limit Bending,Lifting Restriction of 10 lbs,Gait Belt above Incisional Area Recommendations To Nursing Amount of Assist Needed Independent Discharge Recommendations PT Discharge Recommendations SNF Rehab Transportation Needs at Discharge Wheelchair/Cabulance
[2023-06-02 12:37] VITALS: BP 126/76; PULSE 85; RESP 18; TEMP 36.2; O2SAT 92
--- NOTE | 2023-06-02 12:40 | PM.PNPO.1 ---
Subjective Subjective Interval history: He notes he is doing okay. He has gotten up with physical therapy. He is still having substantial back pain. Exam Vital Signs (past 8 hours): - 06/02/23 08:11 06/02/23 08:32 06/02/23 12:37 Temperature 98.4 F 97.1 F L Pulse Rate 84 84 85 Respiratory Rate 18 18 Blood Pressure 143/82 H 143/82 H 126/76 Pulse Oximetry 92 92 Oxygen Flow Rate 0 0 Oxygen Delivery Method Nasal Cannula Oxygen Flow Rate 0 Narrative Exam Narrative: He is resting comfortably in the chair his dressings intact he is able to fire bilateral lower extremities his calves are soft bilaterally has fairly normal strength and minimal numbness Objective Labs 06/01/23 04:40 PFSH Medical History (Updated 05/23/23 @ 14:44 by Kelsey Ramirez RN) CAD (coronary artery disease) Easy bruisability History of mechanical ventilation (2020) HLD (hyperlipidemia) HTN (hypertension) Ischemic cardiomyopathy Melanoma Suspected sleep apnea Surgical History (Updated 05/23/23 @ 14:19 by Kelsey Ramirez RN) History of cardiac cath History of placement of ear tubes (06/2021) History of surgical removal of ganglion cyst (~2015) Hx of heart artery stent (2017) Hx of nasal septoplasty Social History household members: none Smoking Status: Current every day smoker alcohol intake: current Assessment & Plan Post-op Postoperative Procedures: Procedures Operation Date: 05/31/23 11:45 Actual Procedure Side Surgeon p L3-4, L4-5 TLIF w. posterior instrumentation -Robot Kevon Adrian MD Postoperative day: 2 Postoperative status: marginal pain control Postoperative plan narrative: he is doing okay postoperatively. He is having some difficulty mobilizing with physical therapy. We are going to go ahead and get his catheter out today. I strongly encouraged him to work hard to work on mobilizing and getting around with therapy. He says he has no help at home and is not . He may require rehab. Quality VTE Deep Vein Thrombosis/Pulmonary Embolism Present on Admission: No
--- NOTE | 2023-06-02 13:23 | PT.IPTN ---
Current Diagnoses Spondylolisthesis, lumbar region (05/31/23) Spinal stenosis, lumbar region with neurogenic claudication (05/31/23) Postlaminectomy syndrome, not elsewhere classified (05/31/23) Surgery Performed Operation Date: 05/31/23 11:45 Actual Procedures p L3-4, L4-5 TLIF w. posterior instrumentation -Robot - Kevon Adrian MD Physical Therapy Treatment Note M2 PT-IP Current Condition Start: 06/01/23 17:30 Freq: NEEDED Status: Active Protocol: Document 06/02/23 10:14 SAK (Rec: 06/02/23 10:30 SAK [id number]) Physical Therapy Current Condition Current Condition Evaluation Date 06/01/23 Treatment Diagnosis s/p L3-4, L4-5 TLIF; difficulty in walking Onset Date 05/31/23 M3 PT-IP Subjective Start: 06/01/23 17:30 Freq: NEEDED Status: Active Protocol: Document 06/02/23 13:00 [facility] (Rec: 06/02/23 14:19 [facility] [id number]) Subjective Physical Therapy Visit Type Type Treatment Note Visit Start Time 13:00 Visit Stop Time 13:23 Total Visit Minutes 23 Number of UTILITIES MANAGER Visits 1 Physical Therapy Visit Comments Patient Comments Pt wants to go back to bed. Therapy Pain Assessment Pain When Pain Assessed During Mobility Pain Present Pain Present Pain Reported Location LOWER BACK Scale Used not quantified Pain Behaviors Facial Grimacing,Guarding, Moaning,Wincing Pain Management Techniques Distraction,Modification of Treatment,Re-positioning, Timing of Activity with Medications M4 PT-IP Mobility and Gait Start: 06/01/23 17:30 Freq: NEEDED Status: Active Protocol: Document 06/02/23 13:00 [facility] (Rec: 06/02/23 14:19 [facility] [id number]) PT-Bed Mobility Assessment Rolling Type of Rolling Log Rolling Level of Assist Maximal Assistance Sit to Supine Sit to Supine Maximum Assistance Scooting Scooting to Edge of Bed Maximum Assistance PT-Transfer Assessment Sit to and From Stand Sit to and from Stand Maximum Assistance,2 Person Assistance,Use of Upper Extremities Equipment Transfer Assistive Device Front Wheeled Walker Orthotic/Prosthetic Devices or Brace: No Transfers Transfer Destination Bed Transfer Technique Stand Step Pivot Transfer Ability Level of Assist Maximum Assistance,Use of Upper Extremities Comments Mobility Comments Pt in chair upon arrival, requesting to get back in bed. Pt unable to sit<>Stand w/ Max A x1. PULLEY WORKER arrived fo additional assistance. Pt sit< >stand Max A x2 and ambulated ~3 ft to bed w/ Mod A and max cues. Max A for sit<>sup, logroll, and repositioning in bed. Pt left w/ PULLEY WORKER. Gait Assessment Gait Gait Assistance Required: Moderate Assistance,1 Person Assist Distance (Feet) 3 Able to Maintain Weight Bearing Status Yes During Gait Assistive Devices Assistive Device Gait Belt,Front Wheeled Walker Gait Deviations General Gait Pattern Decreased Stride Length, Decreased Feet Clearance,Step- to Gait Factors Limiting Gait Function Factors Limiting Gait Function Decreased Activity Tolerance, Decreased Strength,Difficulty Following Directions,Limited Range of Motion,Pain,Poor Balance,Poor Safety Awareness Comments Gait Comments Pt unable to increase amb distance d/t pain. PT-Balance Assessment Sitting Balance and Reactions Static Sitting Balance Ability Good Dynamic Sitting Balance Ability Fair Standing Balance and Reactions Static Standing Balance Ability Poor Dynamic Standing Balance Ability Poor Device Used FWW M5 PT-IP Objective Assessments Start: 06/01/23 17:30 Freq: NEEDED Status: Active Protocol: Document 06/02/23 10:14 SAK (Rec: 06/02/23 10:30 SAK [id number]) Orientation Orientation/Cognition Level of Alertness Confusional State Orientation Name,Place,Situation Comments confused about day, whether already OOB this date M6 PT-IP Treatment Start: 06/01/23 17:30 Freq: NEEDED Status: Active Protocol: Document 06/02/23 13:00 [facility] (Rec: 06/02/23 14:19 [facility] [id number]) Physical Therapy Treatment Education Education Provided Precautions,Safety M7 PT-IP Assessment and Plan Start: 06/01/23 17:30 Freq: NEEDED Status: Active Protocol: Document 06/02/23 13:00 [facility] (Rec: 06/02/23 14:19 [facility] [id number]) PT Summary Assessment and Plan Potential Rehabilitation Potential Fair Summary Impairments Pain,ROM,Strength,Balance, Coordination,Sensation,Tone, Cognition,Bed Mobility, Transfers,Gait,Activity Tolerance Progress Towards Goals Slow Progress due to Pain,Slow Progress due to Activity Tolerance Assessment Summary Pt required Max A x2 for sit<> stand from chair today and Mod A for 3 ft ambulation back to bed. He reports high level of pain and appears confused at times. PULLEY WORKER assisted w/ mobility. Pt will require SNF to improve strength, safety, and functional mobility. Goals Bed Mobility Goal Minimal Assistance Transfer Goal Minimal Assistance,Front Wheeled Walker Gait Goal Minimal Assistance,Front Wheel Walker Gait Distance 50 Other Goals improve bed mobility, transfers using FWW and ambulation using FWW ~ 150 ft SBA up/down 2 steps using SPC CGA Days to Meet Goals 10 Frequency of Treatment Frequency Of Treatment Twice a Day Treatment Plan Physical Therapy Treatment Plan Bed Mobility Training,Transfer Training,Gait Training, Therapeutic Exercise,Balance Retraining,Post Op Education, Discharge Planning,Hot or Cold Pack,Neuromuscular Re-ed, Coordination Retraining,Manual Therapy Precautions Lumbar Precautions Log Roll,No Twisting,Limit Bending,Lifting Restriction of 10 lbs,Gait Belt above Incisional Area Recommendations To Nursing Amount of Assist Needed 2 Person Assist Discharge Recommendations PT Discharge Recommendations SNF Rehab Transportation Needs at Discharge Wheelchair/Cabulance
--- NOTE | 2023-06-02 13:54 | PC.NURSE ---
IV removed and pt belongings packed up. Report given to Tiffany at [facility] @ [phone]. Awaiting transport.
--- NOTE | 2023-06-02 16:32 | OT.IP.EVAL ---
Current Diagnoses Spondylolisthesis, lumbar region (05/31/23) Spinal stenosis, lumbar region with neurogenic claudication (05/31/23) Postlaminectomy syndrome, not elsewhere classified (05/31/23) Surgery Performed Operation Date: 05/31/23 11:45 Actual Procedures p L3-4, L4-5 TLIF w. posterior instrumentation -Robot - Kevon Adrian MD Past Medical History (Last Updated 05/23/23 @ 14:44 by Kelsey Ramirez, RN) CAD (coronary artery disease) Easy bruisability History of mechanical ventilation (2020) HLD (hyperlipidemia) HTN (hypertension) Ischemic cardiomyopathy Melanoma Suspected sleep apnea Surgical History (Last Updated 05/23/23 @ 14:19 by Kelsey Ramirez RN) History of cardiac cath History of placement of ear tubes (06/2021) History of surgical removal of ganglion cyst (~2015) Hx of heart artery stent (2017) Hx of nasal septoplasty Occupational Therapy Inpatient Evaluation/Re-Eval M1 PT/OT-IP Prior Functional Status Start: 06/01/23 17:30 Freq: NEEDED Status: Active Protocol: Document 06/02/23 17:19 CGR (Rec: 06/02/23 17:31 CGR [id number]) Medical Review Prior Functional Status Medical History Reviewed Yes Communication Pt is an effective verbal communicator. Mobility and Gait pt stated that he is independent with all mobilities and ambulation without AD Activities of Daily Living and IADL's Pt states that he is IND in all ADLs. Social History Household Members none Living Arrangements House Number of Floors (Floors) One Floor Number of Stairs To Enter/Railing? 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 M2 OT-IP Current Condition Start: 06/02/23 17:19 Freq: Status: Active Protocol: Document 06/02/23 17:19 CGR (Rec: 06/02/23 17:31 CGR [id number]) Occupational Therapy Current Condition Current Condition Evaluation Date 06/02/23 Treatment Diagnosis L3-4 and L4-5 TLIF Diagnosis Onset Date 05/31/23 Post Operative Precautions Lumbar Precautions Log Roll,No Twisting,Limit Bending,Lifting Restriction of 10 lbs,Gait Belt above Incisional Area M3 OT- IP Subjective and Pain Start: 06/02/23 17:19 Freq: Status: Active Protocol: Document 06/02/23 17:19 CGR (Rec: 06/02/23 17:31 CGR [id number]) OT- Subjective Occupational Therapy Visit Type Type Initial Evaluation Visit Start Time 16:07 Visit Stop Time 16:32 Total Visit Minutes 25 Notes Pt requesting to get up to BSC OT Pain Assessment Pain When Pain Assessed During Mobility Pain Present Pain Present Pain Reported Location LOWER BACK Scale Used did not rate Pain Behaviors Facial Grimacing,Guarding Management Techniques Distraction,Modification of Treatment,Re-positioning, Timing of Activity with Medications M4 OT- IP ADL's Start: 06/02/23 17:19 Freq: Status: Active Protocol: Document 06/02/23 17:19 CGR (Rec: 06/02/23 17:31 CGR [id number]) OT AOQ-Olxq-Rfsrrht General Evaluation Self-Feeding Ability Independent Comments OT Self-Feeding Comments Walked by the patients room later when dinner was delivered and pt was feeding without difficulty including opening items. OT ADL-Grooming Comments OT Grooming Comments pt declined OT ADL-Oral Care Comments Oral Care Comments pt declined OT ADL-Dressing General Eval Lower Body Dressing Ability Total Assistance Areas Needing Assistance Socks OT ADL-Toileting Comments OT Toileting Comments Pt requesting to get to the BSC. Pt left sitting on BSc with nursing aware as pt states he thinks it will be a while. OT ADL-Bathing Comments OT Bathing Comments not performed M5 OT- IP IADL's Start: 06/02/23 17:19 Freq: Status: Active Protocol: Document 06/02/23 17:19 CGR (Rec: 06/02/23 17:31 CGR [id number]) OT-Instrumental Activities of Daily Living Deficits IADL Deficits Identified Deficits Home Safety Awareness Awareness of Need for Assistance at Home Decreased Awareness Ability to Problem Solve Emergency Unable to Problem Solve Situations Medication Management Medication Management Comments concerns for pt's ability to perform safely at this time Money Management Money Management Comments concerns for pt's ability to perform safely at this time Meal Preparation Meal Preparation Comments concerns for pt's ability to perform safely at this time Fleet Coordinator Fleet Coordinator Comments concerns for pt's ability to perform safely at this time Driving Driving Concerns Identified Regarding Safety Driving Comments concerns for pt's ability to perform safely at this time M6 OT- IP Functional Cognition Start: 06/02/23 17:19 Freq: Status: Active Protocol: Document 06/02/23 17:19 CGR (Rec: 06/02/23 17:31 CGR [id number]) Cognitive Factors Limiting Selfcare Function Cognitive Ability Level of Alertness Alert,Drowsy Patient Orientation Name,Age,Birthday,Month,Date, Year,Place,Situation Attention Span Ability Unable to Focus,Unable to Sustain Attention Ability to Follow Commands Able to Follow One Step Commands with Increased Time, Able to Follow One Step Commands with Repetition Cognitive Comments Cognitive Assessment Comments Pt needs extra time for comprehension and response, he appears to know that he is confused. Pt may benefit from formal cog assessment if he has not cleared in 1-2 days. OT- Vision and Hearing OT- Vision Assessment Visual Acuity Glasses All The Time Visual Attentiveness WFL Occular Pursuits WFL Visual Convergence WFL Vision Assessment Comments pt wears trifocals M7 OT- IP Mobility and Balance Start: 06/02/23 17:19 Freq: Status: Active Protocol: Document 06/02/23 17:19 CGR (Rec: 06/02/23 17:31 CGR [id number]) OT- Bed Mobility Assessment Rolling Type of Rolling Log Rolling Level of Assistance Maximum Assistance,1 Person Assistance Supine to Sit Supine to Sit Assist Maximum Assistance,1 Person Assistance Scooting Scooting to Edge of Bed Total Assistance,1 Person Assistance OT-Transfer Assessment Sit to and From Stand Sit to and from Stand Moderate Assistance,1 Person Assistance Transfers Transfer Ability Minimal Assistance,1 Person Assistance Technique Transfer Destination Bed,Bedside Commode Transfer Technique Stand Step Pivot Devices Transfer Assistive Devices Gait Belt,Front Wheeled Walker Comments Mobility Comments Pt needed significant assist for supine to sit but then mod a for sit to stand and min a for transfer to [facility]. Pt will benefit from continued therapy services. OT- Balance Assessment Sitting Balance and Reactions Static Sitting Balance Ability Good Dynamic Sitting Balance Ability Fair M8 OT- IP Objective Assessments Start: 06/02/23 17:19 Freq: Status: Active Protocol: Document 06/02/23 17:19 CGR (Rec: 06/02/23 17:31 CGR [id number]) OT Gross Range of Motion Upper Extremity Range of Motion Assessment Within Functional Limits OT Strength Upper Extremity Strength Assessment Within Functional Limits Comments Strength Comments 4/5 OT- Coordination Assessment Upper Extremity Finger to Nose Test Within Functional Limits Finger Tapping Test Within Functional Limits OT-Muscle Tone Assessment Muscle Tone WNL Yes OT Sensation Assessment Edema Edema Absent M9 OT- IP Assessment and Plan Start: 06/02/23 17:19 Freq: Status: Active Protocol: Document 06/02/23 17:19 CGR (Rec: 06/02/23 17:31 CGR [id number]) OT Summary Assessment and Plan Potential Rehabilitation Potential Good Analytic Complexity at Evaluation Moderate Summary OT Impairments Pain,Strength,Balance, Functional Cognition, Functional Mobility,Grooming, Dressing,Toileting,Bathing, Toilet Transfers,Shower Transfers,Activity Tolerance Progress Towards Goals Slow Progress due to Pain,Slow Progress due to Medical Issues,Slow Progress due to Activity Tolerance,Slow Progress due to Cognition Assessment Summary Pt presents as a moderate complexity evaluation s/p admit fro L3-4 and L4-5 TLIF. Pt appears confused and needed max to total a for bed mobility. Pt was able to transfer to the BSC with min to mod assist and performed general testing seated on BSC. Needed max vc for motor planning scooting back on BSC and was unable to perform scooting EOB without total assist. Pt will benefit from SNF. Goals Self-Feeding Goal Independent Grooming Goal Independent Dressing Goal Independent Toileting Goal Independent Bathing Goal Independent Toilet Transfer Goal Independent Shower Transfer Goal Independent Days to Meet Goals 15 Frequency of Treatment Frequency Of Treatment Once a Day Treatment Plan OT Treatment Plan ADL Training,Functional Cognition Training,Functional Mobility,Patient/Family Education,Discharge Planning Other Treatment Recommendations and Next ADLs seated or standing and LB Treatment Focus dressing if cognition has improved Discharge Recommendations OT Discharge Recommendations SNF Rehab Transportation Needs at Discharge Wheelchair/Cabulance
[2023-06-02] MEDS: OXYCODONE IR 5 MG TABLET PO ×2 (16:59→20:43)
[2023-06-02 20:00] VITALS: BP 138/84; PULSE 96; RESP 21; TEMP 36.7; O2SAT 96
[2023-06-02] MEDS: ATORVASTATIN 20 MG TABLET 40 MG PO (20:42)
[2023-06-02] MEDS: SENNOSIDES 8.6 MG TABLET 17.2 MG PO (20:43)
[2023-06-02] MEDS: ACETAMINOPHEN 325 MG TABLET 650 MG PO (20:43)
[2023-06-03 04:00] VITALS: BP 137/82; PULSE 82; RESP 17; TEMP 36.4; O2SAT 92
[2023-06-03] MEDS: OXYCODONE IR 5 MG TABLET PO (07:37)
--- NOTE | 2023-06-03 07:39 | PC.NURSE ---
Patient given 5mg of oxycodone for complaints of back pain, per production shift supervisor RN this dose has been helpful with discomfort.
--- NOTE | 2023-06-03 09:29 | PC.NURSE ---
Addendum entered by Vilma Hooks R.N. 06/03/23 14:20: Report called to [facility] and patient was just picked up. Addendum entered by Vilma Hooks R.N. 06/03/23 11:09: [facility] at 1400. Original Note: Patient just up to chair with physical therapy. Oxycodone 5mg has worked well for patients discomfort to his back. He fell asleep prior to working with therapy. He has been confused over night and this morning at times. Will be giving him his regular morning medications soon.
--- NOTE | 2023-06-03 09:30 | CM.DANOTE ---
DCP Assessment Note Late Entry for 06/02/23 Patient is a 67yo M here under inpatient status following planned TLIF with Dr. Adrian on 05/31/23. WARP HAULER reviewed EMR. Per nursing staff, patient is a bit confused likely due to medication. Rounding provider Dr. Tobin agreed to alter pain medication to attempt to continue to control pain but reduce confusion. Per PT, SNF continues to be recommended. PT reports patient is max assist. From PT note, patient is independent with ADLs at home and has a FWW. WARP HAULER entered room and introduced self and role. Patient was groggy but talkative. Patient was able to report name, location, time, and circumstance but would occasionally say confusing things that indicated he may not have been completely oriented to situation. WARP HAULER unable to obtain full assessment details from patient due to medication induced confusion. Patient reports he lives alone in [place]. Son, Mel, is DPOA ([phone]). Patient reported his preference is [facility] for SNF care. From Isaura at [facility], there are three beds available and she would be happy to have Ashleigh review Saturday morning. Son/DPOA Mel and FELTON stopped by later and had questions for discharge plan. WARP HAULER updated them on current [facility] when medically [facility], maybe Saturday. Mel in agreement. Plan: referral sent to [facility] for review. D/c to SNF when medically stable. CM team will follow closely. PASRR needed. THALIA Benton Discharge Planning/Care Management CM Discharge Assessment Start: 06/03/23 09:27 Freq: Status: Active Protocol: Document 06/03/23 09:27 (Rec: 06/03/23 09:29 [id number]) Discharge Planning Assessment Assigned Landscaper Helper THALIA Lerma/Assigned Designee Name Mel (son) Contact Information [phone] Advance Directives? Yes Advance Directives on File No History Provided By Patient,Medical Record Prior Living Arrangements House Household Members none Type of transporation used prior to Drives own vehicle admit Independent with ADL's Yes Is patient alert and oriented? Yes DME Already Rented / Owned FWW / Walker Patient/Family Preference Custodial Facility Discharge Plan Custodial Facility Transportation Arrangement facility Referrals Initiated Custodial If patient plan is SNF: Has PASSR been No completed? Medicare Choice List Provided Yes SNF/HH Preference [facility] Marisel Tidwell Has Agency SNF been contacted Yes Whiteboard Updated in Patient Room with Yes name and ext. # of Landscaper Helper Review Status In Process Next Review Type Continued Stay Review Pre-Anesthesia Assessment Start: 05/23/23 13:58 Freq: Status: Complete Protocol: Document 05/23/23 13:58 CAB (Rec: 05/23/23 15:03 CAB [id number]) Pre-Anesthesia Assessment Patient Information Reviewed Via Phone Assessment Assessment Completed With Patient Comment Outside labs/EKG scanned Primary Care Provider Gera Krishnan Seen Specialist in Last 12 Months Yes Specialist Seen Journeyman Mechanic,Orthopedist Primary Language Spanish Spline Rolling Machine Job Setter Required No Height 177.8 cm Weight 122.47 kg Body Mass Index (BMI) 38.7 Hearing Ability Normal Visual Assist Glasses Dentition Type Teeth, Natural Present,Teeth, Missing Barriers to Learning None Hx Anesthesia Reactions No Hx Family Anesthesia Reaction No Hx Malignant Hyperthermia No Hx Blood Transfusions No Anesthesia Review Requested Yes: Ekaterina/MARGO @ Surgeon's office requested re: EKG changes Pediatric Speech Therapist No alcohol intake current alcohol intake frequency holidays/special occasions only Smoking Status Current every day smoker Tobacco type cigars Smoking packs per day 3 Substance Use Type does not use Pain Present Pain Reported Musculoskeletal Symptoms Abnormal Gait,Back Pain, Difficulty Walking,Joint Pain, Radiating Pain into Limb History of Falling (Recent or History of No ) Patient is completely paralyzed or No completely immobile Mental Status Oriented to own ability Is patient on oxygen? No Does patient have GARSIA/SOB No Hx Sleep Apnea No Currently Taking a Beta Princess Yes: Metoprolol Hx Chest Pain No Hx SOB No Hx Syncope or Dizziness No Anti-Coagulant Therapy No Has a Journeyman Mechanic Yes: Pre-op 05/23/[address] Rolle Cardiac Testing No Hx Pacemaker/ICD No Pacemaker Rep Required? No Cardiac Clearance Received Yes Comment Cardiac records scanned Diet Type At Home Regular Dysphagia No Gastrointestinal Symptoms None Chronic UTI No Bladder Pattern Nocturia,Urgency Urinary Catheter Present No Hx Urinary Self Catheterization No Diabetes No Presence of External or Internal Medical Yes: Cardiac stent, ear tubes Devices Received a COVID vaccine? Yes Received all doses? No Marital Status Single Lives With none Current Living Arrangements House Number of Floors (Floors) One Floor Support System Child/Children Comment Daughter and ex- will be available to assist with care at [place] Does the Patient Have Assistance After Yes Surgery Patient Discharge Plan Description Return Home Comment Pt advised 2 day length of stay per surgeon Feels Safe in Current Environment Yes Been Physically Hurt or Threatened By a No Person in Current Environment Do you have thoughts of harming yourself None or others? Are you currently considering suicide? No Do you have a plan to hurt yourself or No Plan others? Do You Have Any Spiritual Beliefs That No May Affect Your HC Choices? Do You Have Any Cultural Practices That No May Affect Your HC Choices? Comment Álvaro Who Can We Speak to About Patient's Care Family, friends Identifying Code for Release of Patient Annie Information Health Care Proxy/Next of Kin Alex (son) Health Care Proxy Emergency Contact Name Moni (daughter) Emergency Contact Advance Directives? Yes Advance Directives on File No Requested Patient Bring Advanced Yes Directives DOS Power of Expanded Function Dental Assistant Yes Power of Expanded Function Dental Assistant Name Alex (son) Power of Expanded Function Dental Assistant PAC Instructions Durable medical equipment, Medications to take/avoid, Nasal antibiotic,No ETOH/ petroleum product on skin DOS, NPO,Pre-surgical wash,Sensory aids,Sturdy shoes/comfortable clothes,Do not bring valuables and remove jewelry
--- NOTE | 2023-06-03 09:31 | PT.IPTN ---
Current Diagnoses Spondylolisthesis, lumbar region (05/31/23) Spinal stenosis, lumbar region with neurogenic claudication (05/31/23) Postlaminectomy syndrome, not elsewhere classified (05/31/23) Surgery Performed Operation Date: 05/31/23 11:45 Actual Procedures p L3-4, L4-5 TLIF w. posterior instrumentation -Robot - Kevon Adrian MD Physical Therapy Treatment Note M2 PT-IP Current Condition Start: 06/01/23 17:30 Freq: NEEDED Status: Active Protocol: Document 06/02/23 10:14 SAK (Rec: 06/02/23 10:30 SAK [id number]) Physical Therapy Current Condition Current Condition Evaluation Date 06/01/23 Treatment Diagnosis s/p L3-4, L4-5 TLIF; difficulty in walking Onset Date 05/31/23 M3 PT-IP Subjective Start: 06/01/23 17:30 Freq: NEEDED Status: Active Protocol: Document 06/03/23 09:31 (Rec: 06/03/23 09:43 [id number]) Subjective Physical Therapy Visit Type Visit Start Time 09:00 Visit Stop Time 09:31 Total Visit Minutes 31 Physical Therapy Visit Comments Patient Comments Pt reports pain at 7am that was very intense. Therapy Pain Assessment Pain When Pain Assessed At Rest Pain Present Pain Present Pain Reported Location LOWER BACK Scale Used not quantified Pain Behaviors Moaning,Wincing M4 PT-IP Mobility and Gait Start: 06/01/23 17:30 Freq: NEEDED Status: Active Protocol: Document 06/03/23 09:31 (Rec: 06/03/23 09:43 [id number]) PT-Bed Mobility Assessment Rolling Type of Rolling Log Rolling Level of Assist Maximal Assistance,1 Person Assistance,2 Person Assistance Supine to Sit Supine to Sit Maximum Assistance,1 Person Assistance,2 Person Assistance ,Bedrails Scooting Scooting to Edge of Bed Maximum Assistance PT-Transfer Assessment Sit to and From Stand Sit to and from Stand Moderate Assistance,Maximum Assistance,2 Person Assistance Equipment Transfer Assistive Device Front Wheeled Walker Transfers Transfer Destination Chair,Bedside Commode Transfer Technique Stand Step Pivot Transfer Ability Level of Assist Maximum Assistance,1 Person Assistance,2 Person Assistance Comments Mobility Comments Pt had more difficulty transfering from supine to sit . Scooting to the edge of the bed required assistance. Gait belt was placed above incision under arms. Gait Assessment Gait Gait Assistance Required: Moderate Assistance,Maximum Assistance,2 Person Assist Comments Gait Comments steps taken during transfers only. 3 feet. PT-Balance Assessment Sitting Balance and Reactions Static Sitting Balance Ability Good Dynamic Sitting Balance Ability Fair Standing Balance and Reactions Static Standing Balance Ability Fair Dynamic Standing Balance Ability Fair Device Used FWW M5 PT-IP Objective Assessments Start: 06/01/23 17:30 Freq: NEEDED Status: Active Protocol: Document 06/02/23 10:14 SAK (Rec: 06/02/23 10:30 SAK [id number]) Orientation Orientation/Cognition Level of Alertness Confusional State Orientation Name,Place,Situation Comments confused about day, whether already OOB this date M6 PT-IP Treatment Start: 06/01/23 17:30 Freq: NEEDED Status: Active Protocol: Document 06/03/23 09:31 AW (Rec: 06/03/23 09:40 AW [id number]) Physical Therapy Treatment Education Education Provided Precautions,Safety Other Treatments Other Treatment Performed Education provided on hip hinge mechanics for transfers and for pelvic floor relaxation during commode activities. Further education provided on use of inspirometer due to pt confusion regarding technique. M7 PT-IP Assessment and Plan Start: 06/01/23 17:30 Freq: NEEDED Status: Active Protocol: Document 06/03/23 09:31 AW (Rec: 06/03/23 09:40 AW [id number]) PT Summary Assessment and Plan Potential Rehabilitation Potential Good Summary Impairments Pain,ROM,Strength,Balance, Coordination,Sensation,Tone, Cognition,Bed Mobility, Transfers,Gait,Activity Tolerance Progress Towards Goals Progressing Toward Goals,Slow Progress due to Pain,Slow Progress due to Activity Tolerance Assessment Summary Tony continues to require heavy assist for bed mobility but was able to progress with transfers. Still does best with 2-person assist for safety and cues for sequence but therapists were able to lighten up assist at this encounter. Pt is motivated to get stronger and will benefit from daily rehab activities at [facility] which remains PT's recommendation. Goals Bed Mobility Goal Minimal Assistance Transfer Goal Minimal Assistance,Front Wheeled Walker Gait Goal Minimal Assistance,Front Wheel Walker Gait Distance 50 Other Goals improve bed mobility, transfers using FWW and ambulation using FWW ~ 150 ft SBA up/down 2 steps using SPC CGA Days to Meet Goals 10 Frequency of Treatment Frequency Of Treatment Twice a Day Treatment Plan Physical Therapy Treatment Plan Bed Mobility Training,Transfer Training,Gait Training, Therapeutic Exercise,Balance Retraining,Post Op Education, Discharge Planning,Hot or Cold Pack,Neuromuscular Re-ed, Coordination Retraining,Manual Therapy Precautions Lumbar Precautions Log Roll,No Twisting,Limit Bending,Lifting Restriction of 10 lbs,Gait Belt above Incisional Area Recommendations To Nursing Amount of Assist Needed 2 Person Assist Discharge Recommendations PT Discharge Recommendations SNF Rehab Transportation Needs at Discharge Wheelchair/Cabulance
[2023-06-03] MEDS: METOPROLOL ER 25 MG TABLET PO (09:41)
[2023-06-03] MEDS: DOCUSATE 100 MG CAPSULE PO (09:41)
[2023-06-03] MEDS: AMLODIPINE 5 MG TABLET PO (09:41)
--- NOTE | 2023-06-03 10:47 | CM.DPC ---
DCP Continued: PAPER FOLDING MACHINE OPERATOR reviewed EMR. Per provider's report yesterday it was likely that patient would be medically stable to d/c to a SNF Saturday. CM Project Manager Retail Lorelei said Ashleigh from [facility] can accept patient today. PAPER FOLDING MACHINE OPERATOR LVM with surgery staff to inquire about their thoughts re: patient discharge today, 06/03. PAPER FOLDING MACHINE OPERATOR Katia Tobin texted MARGO Mckeon to inquire about d/c timeline. PAPER FOLDING MACHINE OPERATOR completed PASRR. PAPER FOLDING MACHINE OPERATOR updated nursing staff and patient on d/c for this afternoon around 1400. Patient verbalized his consent for PAPER FOLDING MACHINE OPERATOR to contact Mel coates. PAPER FOLDING MACHINE OPERATOR called Mel ([phone]) to update him on plan. Son verbalized his understanding and is in agreement. PAPER FOLDING MACHINE OPERATOR gave nursing report number to nursing staff. Plan: d/c to [facility] today at 1400 if medically stable. PASRR completed. CM team will fax appropriate d/c information to [facility] when ready. CM team will continue to follow closely. THALIA Benton
--- NOTE | 2023-06-03 11:41 | PM.DS.1 ---
History of Present Illness History of Present Illness Date Patient Seen: 06/03/23 Time Patient Seen: 07:30 Chief complaint: TLIF Narrative: Patient is resting in bed this morning. He states his back is in considerable pain and is due for his oxycodone. Patient notes that physical therapy has not gone as well he stated helped. He is looking forward to discharging to rehab when able. Denies fever, chills, chest pain, shortness of breath. Discharge Providers Provider Date of admission: 05/31/23 10:02 Discharge Date: 06/03/23 Primary care physician: Gera Krishnan MD Consults: 05/23/23 15:03 Consult to Anesthesiology Routine Comment: Consulting Provider: Anesthesiologist Reason for consultation: Ekaterina/MARGO latham/Surgeon requested re: EKG changes 05/31/23 17:25 Consult to Occupational Therapy Evaluate & Treat Comment: Physician Instructions: Evaluate and treat Consult to Physical Therapy Evaluate & Treat Comment: Physician Instructions: Evaluate and Treat Discharge provider: Bryanna Scott PA-C Summary Hospital Course Discharge Diagnosis: Status post TLIF Hospital Course: Operative Date/Time/Diagnoses Date of procedure: 05/31/23 Time of procedure: 12:00 Pre-op diagnosis: 1. L3-4, L4-5 spinal stenosis with neurogenic claudication 2. Epidural lipomatosis 3. Lumbar spondylosis with foramen stenosis Post-op diagnosis: same Procedure & Clinicians Procedure: 1. L3-4, L4-5 Postero-lateral and posterior interbody fusion 2. L3-4, L4-5 interbody cage placement. 3. L3-4, L4-5 decompressive laminectomy with bilateral facetecomies 4. L3-4, L4-5 Posterior segmental instrumentation 5. [place] of bone marrow from iliac crest 6. Utilization of microsurgical technique and operating microscope 7. Utilization of robotic assisted navigation Same procedure as scheduled: Yes Indications: Patient has been having chronic back pain and worsening lumbar radiculopathy and symptoms of neurogenic claudication. Patient failed multiple conservative management with worsening pain weakness and numbness in his lower extremity.? Patient has been having difficulty performing activity of daily living.? After discussing risks benefits of treatment options, patient elected proceed with surgery. Surgeon: Kevon Adrian Gear Machinist: Bryanna Scott Click Yes if Unassisted: No Anesthesia Type: General Operative Notes Closure Type: primary Specimen(s): none sent Prosthetic devices, grafts, tissues, transplants, or devices: Globus CREO MIS screws, Rise cages Applied: catheter Estimated Blood Loss (mL): 100 Blood products transfused: none Status at Discharge Cognitive/behavioral status at discharge: oriented Functional status at discharge: uses cane/walker Overall status at discharge: patient is progressing back to baseline Exam Vital Signs (past 8 hours): - 06/03/23 04:00 Temperature 97.5 F L Pulse Rate 82 Respiratory Rate 17 Blood Pressure 137/82 Pulse Oximetry 92 Oxygen Flow Rate 0 Oxygen Delivery Method Room Air Oxygen Flow Rate 0 Narrative Exam Narrative: 67-year-old male. Awake, alert, slightly confused. Intraoperative bandage clean, dry, and intact. Strength and sensation intact to bilateral lower extremities. Bilateral calves soft, compressible, nontender with no palpable cords or masses. Objective Labs 06/01/23 04:40 PFSH Medical History (Updated 05/23/23 @ 14:44 by Kelsey Ramirez RN) CAD (coronary artery disease) Easy bruisability History of mechanical ventilation (2020) HLD (hyperlipidemia) HTN (hypertension) Ischemic cardiomyopathy Melanoma Suspected sleep apnea Surgical History (Updated 05/23/23 @ 14:19 by Kelsey Ramirez RN) History of cardiac cath History of placement of ear tubes (06/2021) History of surgical removal of ganglion cyst (~2015) Hx of heart artery stent (2017) Hx of nasal septoplasty Social History household members: none Smoking Status: Current every day smoker alcohol intake: current Discharge Assessment & Plan Assessment and Plan Assessment: Patient's course following surgery is complicated by marginal pain control, poor balance, and poor safety awareness. Physical therapy is recommended that he be discharged to assisted facility for continued rehabilitation. Plan of Treatment: Plan to discharge to SNF today. He will continue rehabilitation to improve strength and balance. Continue multimodal pain regimen as prescribed. No deep bending, twisting, lifting over 10 lb. Discharge Plan Discharge Plan Patient Disposition: SNF Discharge orders & Medications Prescriptions: New oxycodone 5 mg Tablet 5 mg PO Q4-6H PRN (Reason: Pain, Moderate (4-6)) Qty: 40 0RF acetaminophen 325 mg Tablet 650 mg PO Q6H PRN (Reason: Fever/Mild Pain (1-3)) Qty: 120 0RF hydroxyzine pamoate 25 mg Capsule 25 mg PO Q4HR PRN (Reason: Nausea And Vomiting) Qty: 40 0RF Continued atorvastatin 40 mg Tablet 40 mg PO BEDTIME amlodipine 5 mg Tablet 5 mg PO DAILY metoprolol succinate 25 mg Tablet Extended Release 24 Hr 25 mg PO DAILY fluticasone propionate [Flonase] 50 mcg/actuation [place],Suspension 1 spray INTRANASAL BID PRN (Reason: Congestion) Rx Instructions: administer into each nostril Follow up/Referrals: Gera Krishnan MD [Primary Care Provider] - Kevon Adrian MD [Physician] - 2 Weeks (Follow up with Orthopedics 2 weeks after surgery) Diet/Activity/Treatments Diet: Diet as Tolerated Activity: No deep bending, twisting, no lifting over 10 lb Cold/Heat Therapy: Heat to low back as needed Skin/Wound/Dressing Care Report to your healthcare provider any signs of infection, such as:: chills, fever, night sweats, unusual drainage and unusual redness Dressing: Keep dressing clean, dry, and intact until 2 week follow up with Orthopedics. If dressing becomes wet or dirty it may be replaced with new dressing or gauze and tape. [facility] Rehabilitation Services Reason for rehabilitation: Post-operative therapy Rehab type: Physical therapy Visit Report/Discharge Packet Instructions: How to Prevent Falls, DI for Transforaminal Lumbar Interbody Fusion Stand Alone Forms: Patient Portal/API, Surgery Discharge Discharge Data Primary Care Provider: Gera Krishnan Quality VTE Deep Vein Thrombosis/Pulmonary Embolism Present on Admission: No
--- NOTE | 2023-06-03 11:50 | OT.IPNOTE ---
Attempted to see pt for OT services. Pt is sleeping in the chair and requests to continue sleeping. Pt is planned for discharge today at 2pm. Will hold at this time.
[2023-06-03 12:00] VITALS: BP 133/81; PULSE 88; RESP 17; TEMP 36.7; O2SAT 95
--- NOTE | 2023-06-03 13:35 | CM.DPC ---
[facility] only has dental coverage with [employer]. She states she will message back this information electronically.
--- NOTE | 2023-06-03 14:09 | PC.RNWOUND ---
1405 dressing to back (surgical) changed as previous dressing was rolling up. barrier dressings placed. wound visualized to be well approximated and without signs of infection.
== END 2023-06-03 14:11 | DRG 455 ==
PROVIDERS: Admitting Provider Orthopaedic Surgery Orthopaedic Surgery of the Spine; PCP Family Medicine; Referring Provider Orthopaedic Surgery Adult Reconstructive Orthopaedic Surgery; Visit Provider Orthopaedic Surgery Orthopaedic Surgery of the Spine
PROC: 0SG10AJ Fusion of 2 or more Lumbar Vertebral Joints with Interbody Fusion Device, Posterior Approach, Anterior Column, Open Approach (ICD-10-PCS; principal; 2023-05-31 11:45)
DX: M48.062 Spinal stenosis, lumbar region with neurogenic claudication (principal); M47.816 Spondylosis without myelopathy or radiculopathy, lumbar region; M96.1 Postlaminectomy syndrome, not elsewhere classified; M43.16 Spondylolisthesis, lumbar region; E88.2 Lipomatosis, not elsewhere classified; I10 Essential (primary) hypertension; E78.5 Hyperlipidemia, unspecified; G89.18 Other acute postprocedural pain; F17.290 Nicotine dependence, other tobacco product, uncomplicated
CPT/HCPCS: 36415; 72100; 76000; 85014; 85018; 94762; 97116; 97162; 97166; 97530; 97535; C1831; C9290; J0171; J0690; J1100; J1170; J2250; J2405; J2704; J3010